=== PATIENT | male | born 1930 | race Caucasian/White ===

== ENCOUNTER → 2016-12-21 | Outpatient (CLI) | payer MEDICARE ==
[2016-09-07 11:01] VITALS: BP 99/58
[~2016-12-21] MED LIST: AMOX500C PO; AMOX500T PO; ASPI-482 PO; CARV25TA2 PO; CARV40CP PO; ENOX40DI SQ; FINA5TAB4 PO; GLUC100018 PO; MULT-658 PO; NITR100C62 PO; OXYC-323 PO; TRIM100T PO; WARF5TAB7 PO
[2016-12-21 10:49] LABS: CALCIUM 9.4 mg/dL (8.5-10.1); CREATININE 1.2 mg/dL (0.7-1.3); GFR 57.4; POTASSIUM 4.5 mmol/L (3.5-5.1)
== END | disposition home or self-care (01) ==
LOC: LAB 10:16
PROVIDERS: ATTEND Nurse Practitioner Occupational Health
DX: Z12.5 Encounter for screening for malignant neoplasm of prostate (principal); N40.0 Benign prostatic hyperplasia without lower urinary tract symptoms
CPT/HCPCS: 36415; 80048; G0103

== ENCOUNTER → 2018-09-09 | Outpatient (CLI) | payer MEDICARE ==
[2016-09-07 11:01] VITALS: BP 99/58
[~2018-09-09] MED LIST changes: -OXYC-323 PO; +OXYC1TAB15 PO; -TRIM100T PO; +TRIM100T13 PO; +WARF-31 PO; -WARF5TAB7 PO
[2018-09-09 10:17] LABS: ALBUMIN 3.4 g/dL (3.4-5.0); ALBUMIN/GLOBULIN RATIO 0.9 (1.0-1.7); CALCIUM 9.4 mg/dL (8.5-10.1); CREATININE 1.3 mg/dL (0.7-1.3); GFR 52.1; POTASSIUM 4.1 mmol/L (3.5-5.1); TOTAL BILIRUBIN 1.1 mg/dL (0.2-1.0); TOTAL PROTEIN 7.1 g/dL (6.4-8.2)
[2018-09-09 10:23] LABS: CHOLESTEROL/HDL RATIO 3.3
== END | disposition home or self-care (01) ==
LOC: LAB 09:07
PROVIDERS: ATTEND Internal Medicine Cardiovascular Disease
DX: I38 Endocarditis, valve unspecified (principal); I51.9 Heart disease, unspecified; Z79.01 Long term (current) use of anticoagulants
CPT/HCPCS: 36415; 80053; 80061

== ENCOUNTER → 2018-09-11 | Outpatient (CLI) | payer MEDICARE ==
[2016-09-07 11:01] VITALS: BP 99/58
--- NOTE | 2018-09-11 14:55 | CARD ---
MR#: [id number] Date of Study: 09/11/2018 Ordering Physician: FAITH NEWBY, Referring Physician: FAITH NEWBY, Tech: Rosa Mg [facility] APPROVED REPORT EXAM: Two-dimensional and M-mode echocardiogram with Doppler and color Doppler. Other Information Quality : AverageHR: 63bpm Rhythm : Irregular INDICATION Aortic Valve Replacement 2D DIMENSIONS RVDd3.7 (2.9-3.5cm)Left Atrium(2D)4.3 (1.6-4.0cm) IVSd1.3 (0.7-1.1cm)Aortic Root(2D)2.9 (2.0-3.7cm) LVDd5.9 (3.9-5.9cm)LVOT Diameter2.0 (1.8-2.4cm) PWd0.8 (0.7-1.1cm)LVDs4.0 (2.5-4.0cm) FS (%) 32.0 %SV102.3 ml LVEF(%)59.4 (>50%) M-Mode DIMENSIONS Left Atrium(MM)4.39 (2.5-4.0cm)Aortic Root3.25 (2.2-3.7cm) Aortic Valve AoV Peak Jorge.321.0cm/sAoV VTI72.5cm AO Peak GR.41.2mmHgLVOT Peak Jorge.74.6cm/s AO Mean GR.21mmHgAVA (VMAX)0.73cm2 WU (VTI)0.70cm2 Mitral Valve MV E Yxlavtat53.7cm/sMV DECEL [id number] MV A Pfjkqten934.1cm/sE/A Ratio0.6 MV A [id number] Pulmonary Valve PV Peak Tsejwosm095.5cm/s Tricuspid Valve TR P. Nmfajgwv901ir/sRAP MOIOEHTN8fsSb TR Peak Gr.24ibQcLGQY17evNl LEFT VENTRICLE The Left Ventricle is mildly dilated. Proximal septal thickening is noted. The left ventricular systo lic function is normal and the ejection fraction is within normal range. The Ejection Fraction is 55- 60%. Septal motion suggestive of prior CABG. Transmitral Doppler flow pattern is abnormal. RIGHT VENTRICLE The right ventricle is normal size. There is normal right ventricular wall thickness. The right ventr icular systolic function is normal. ATRIA The left atrium is mildly dilated. The right atrium is mildly dilated. The atrial septum is mildly an eurysmal. AORTIC VALVE There is a prosthetic aortic valve. Doppler and Color Flow revealed trace aortic regurgitation. Calcu lated aortic valve area is 0.7 cm2 with maximum pressure gradient of 41 mmHg and mean pressure gradie nt of 21 mmHg. There is a prosthetic aortic valve. The prosthetic aortic valve appears well seated. MITRAL VALVE The mitral valve is normal in structure and function. There is no evidence of mitral valve prolapse. There is no mitral valve stenosis. Doppler and Color Flow revealed no mitral valve regurgitation note d. TRICUSPID VALVE The tricuspid valve is normal in structure and function. Doppler and Color Flow revealed trace tricus pid regurgitation. The PA pressure was estimated at 32 mmHg. There is no tricuspid valve prolapse or vegetation. PULMONIC VALVE Pulmonic valve not well visualized. GREAT VESSELS The aortic root is normal in size. The ascending aorta is normal in size. PERICARDIAL EFFUSION There is no evidence of significant pericardial effusion. Critical Notification Critical Value: No <Conclusion> The left ventricular systolic function is normal and the ejection fraction is within normal range. Th e Ejection Fraction is 55-60%. Calculated aortic valve area is 0.7 cm2 with maximum pressure gradient of 41 mmHg and mean pressure gradient of 21 mmHg. There is a prosthetic aortic valve. The prosthetic aortic valve appears well seated. Signed by : Faith Newby, Electronically Approved : 09/11/2018 14:54:20
== END | disposition home or self-care (01) ==
LOC: ECHO 13:56
PROVIDERS: ATTEND Internal Medicine Cardiovascular Disease
DX: I38 Endocarditis, valve unspecified (principal); I10 Essential (primary) hypertension; Z95.2 Presence of prosthetic heart valve
CPT/HCPCS: 93306

== ENCOUNTER → 2020-02-15 | Outpatient (CLI) | payer MEDICARE ==
[2016-09-07 11:01] VITALS: BP 99/58
--- NOTE | 2020-02-15 16:49 | CARD ---
MR#: [id number] Date of Study: 02/15/2020 Ordering Physician: FAITH NEWBY, Referring Physician: FAITH NEWBY, Tech: Flakita Pederson APPROVED REPORT EXAM: Two-dimensional and M-mode echocardiogram with Doppler and color Doppler. 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 Date: 1994 2D DIMENSIONS RVDd4.2 (2.9-3.5cm)Left Atrium(2D)4.0 (1.6-4.0cm) IVSd1.3 (0.7-1.1cm)Aortic Root(2D)3.3 (2.0-3.7cm) LVDd5.7 (3.9-5.9cm)LVOT Diameter1.8 (1.8-2.4cm) PWd1.0 (0.7-1.1cm)LVDs2.9 (2.5-4.0cm) FS (%) 49.1 %SV129.1 ml LVEF(%)79.9 (>50%) Aortic Valve AoV Peak Jorge.321.3cm/sAoV VTI72.3cm AO Peak GR.41.3mmHgLVOT Peak Jorge.157.7cm/s LVOT VTI 44.38cmAO Mean GR.21mmHg WU (VMAX)0.67uc0KBG (VTI)1.60cm2 Mitral Valve MV E Zxtsdxnt49.8cm/sMV DECEL [id number] MV A Eoikcsnw41.5cm/sMV E Mean Gr.2mmHg MV SJT034fsV/A Ratio0.7 MVA (PHT)2.18cm2 TDI E/Lateral E'7.8E/Medial E'9.0 Pulmonary Valve PV Peak Yhhgivxt24.0cm/sPV Peak Grad.3mmHg Tricuspid Valve TR P. Xeyfykdj133yr/sRAP QTZQVXXB6hmUq TR Peak Gr.92qiHvCWUW32huZa LEFT VENTRICLE The left ventricle is normal size. There is mild concentric left ventricular hypertrophy. The left ve ntricular systolic function is normal. The Ejection Fraction is 50-55%. Septal motion consistent with post-operative state. Transmitral Doppler flow pattern is Grade I-abnormal relaxation pattern. RIGHT VENTRICLE The right ventricle is borderline dilated. There is normal right ventricular wall thickness. The righ t ventricular systolic function is normal. ATRIA The left atrium is borderline dilated. The right atrium is mildly dilated. The interatrial septum is intact with no evidence for an atrial septal defect or patent foramen ovale as noted on 2-D or Dopple r imaging. AORTIC VALVE Doppler and Color Flow revealed trace aortic regurgitation. Calculated aortic valve area is 1.55 cm2 with maximum pressure gradient of 44 mmHg and mean pressure gradient of 22 mmHg. 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 The prosthetic aortic valve appears normal. There are normal prosthetic ao rtic valve gradients. MITRAL VALVE The mitral valve is thickened but opens well. There is no evidence of mitral valve prolapse. There is no mitral valve stenosis. Doppler and Color Flow revealed no mitral valve regurgitation noted. TRICUSPID VALVE The tricuspid valve is normal in structure and function. Doppler and Color Flow revealed trace tricus pid regurgitation with an estimated PAP of 33 mmHg. There is no tricuspid valve stenosis. PULMONIC VALVE The pulmonic valve is not well visualized. Doppler and Color Flow revealed trace to mild pulmonic jonnie vular regurgitation. GREAT VESSELS The aortic root is normal in size. The IVC was not well visualized. PERICARDIAL EFFUSION There is no evidence of significant pericardial effusion. Critical Notification Critical Value: No <Conclusion> The left ventricular systolic function is normal. The Ejection Fraction is 50-55%. Transmitral Doppler flow pattern is Grade I-abnormal relaxation pattern. Mechanical aortic valve prosthesis appears well seated and functioning well. Mean gradient 22 mmHg. Trace aortic regurgitation. Trace tricuspid regurgitation with an estimated PAP of 33 mmHg. There is no evidence of significant pericardial effusion. Signed by : Bernabe Cortes, Electronically Approved : 02/15/2020 16:48:42
== END | disposition home or self-care (01) ==
LOC: ECHO 12:56
PROVIDERS: ATTEND Internal Medicine Cardiovascular Disease
DX: I08.8 Other rheumatic multiple valve diseases (principal); Z85.9 Personal history of malignant neoplasm, unspecified
CPT/HCPCS: 93306